=== PATIENT | female | born 1995 | race Caucasian/White ===

== ENCOUNTER 2018-08-16 18:02 | Emergency (ER) | payer MEDICAID ==
[~2018-08-16] VITALS: Ht 160 cm; Wt 45.0 kg
[2018-08-16 18:07] VITALS: Ht 160 cm; Wt 45.0 kg
--- NOTE | 2018-08-16 20:19 | ERD ---
ER Documentation Chief Complaint Chief Complaint vaginal bleeding & pelvic pain LMP 07/09/18, +hm preg test HPI 22-year old 6-weeks female presents with complaint of pelvic pain and vaginal bleeding since this morning. LMP 07-03-18. patient denies clots, admits to spotting and has only used 1 pad since this morning. States to have taken her first home test yesterday which resulted in positive. Admits to nausea in the morning with one episode of vomiting today. Denies fevers, chills, back pain, dysuria. ROS All systems reviewed and are negative except as per history of present illness. CONSTITUTIONAL: Denies fever, Denies chills, Denies general weakness. RESPIRATORY: Denies SOB, Denies cough. CARDIOVASCULAR: Denies chest pain, Denies palpitations GI: Admits to nausea, Admits to vomiting. Denies diarrhea. Admits to pelvic pain. : Denies dysuria, Denies urgency, Denies hematuria NEURO: Denies focal weakness, Denies slurred speech, Denies gait problems PSYCHIATRIC: Denies change mental status, Denies confusion Allergies Allergies: Coded Allergies: No Known Allergy (Unverified , 08/16/18) Physical Exam Vitals Vital Signs Date Temp Pulse Resp B/P (MAP) Pulse Ox O2 O2 Flow FiO2 Time Delivery Rate 08/16/18 98.7 64 18 103/55 100 22:44 (71) 08/16/18 97.7 89 18 121/64 100 18:07 (83) Physical Exam Const: No acute distress Head: Atraumatic Eyes: Normal Conjunctiva ENT: Normal External Ears, Nose and Mouth. Neck: Full range of motion. No meningismus. Resp: Clear to auscultation bilaterally. Cardio: Regular rate and rhythm, no murmurs Abd: Soft, non tender, non distended. Normal bowel sounds. No suprapubic tenderness, no RLQ/LLQ tenderness. No rebound, no guarding, no McBurney point tenderness. No CVA tenderness. : Normal external genitalia. No visible rashes or discharge. Pelvic exam revealed blood in the vaginal canal, cervical os visible and closed with no POCs. Pelvic exam performed with Bushra Way RN as piece work checker. Back: No midline or flank tenderness Neur: Awake and alert Psych: Normal Mood and Affect Result Diagram: 08/16/18202408/16/182024 Results 24 hrs Laboratory Tests Test 08/16/18 20:25 08/16/18 20:32 White Blood Count 8.2 10^3/ul Red Blood Count 4.17 10^6/ul Hemoglobin 12.6 g/dl Hematocrit 37.2 % Mean Corpuscular Volume 89.2 fl Mean Corpuscular Hemoglobin 30.2 pg Mean Corpuscular Hemoglobin Concent 33.9 g/dl Red Cell Distribution Width 11.8 % Platelet Count 271 10^3/UL Mean Platelet Volume 9.6 fl Immature Granulocytes % 0.200 % Neutrophils % 55.2 % Lymphocytes % 37.0 % Monocytes % 6.2 % Eosinophils % 1.0 % Basophils % 0.4 % Nucleated Red Blood Cells % 0.0 /100WBC Immature Granulocytes # 0.020 10^3/ul Neutrophils # 4.5 10^3/ul Lymphocytes # 3.0 10^3/ul Monocytes # 0.5 10^3/ul Eosinophils # 0.1 10^3/ul Basophils # 0.0 10^3/ul Nucleated Red Blood Cells # 0.0 10^3/ul Prothrombin Time 12.6 Sec Prothrombin Time Ratio 1.0 INR International Normalized Ratio 0.93 Activated Partial Thromboplast Time 27.0 Sec Urine Color YELLOW Urine Clarity SLIGHTLY CLOUDY Urine pH 6.0 Urine Specific [place] 1.028 Urine Ketones TRACE mg/dL Urine Nitrite NEGATIVE mg/dL Urine Bilirubin NEGATIVE mg/dL Urine Urobilinogen NEGATIVE mg/dL Urine Leukocyte Esterase NEGATIVE Gay/ul Urine Microscopic RBC 145 /HPF Urine Microscopic WBC 1 /HPF Urine Squamous Epithelial Cells FEW /HPF Urine Mucus MODERATE /HPF Urine Hemoglobin 3+ mg/dL Urine Glucose NEGATIVE mg/dL Urine Total Protein NEGATIVE mg/dl Sodium Level 138 mmol/L Potassium Level 3.6 mmol/L Chloride Level 100 mmol/L Carbon Dioxide Level 26 mmol/L Anion Gap 12 Blood Urea Nitrogen 11 mg/dl Creatinine 0.47 mg/dl Est Glomerular Filtrat Rate mL/min > 60 mL/min Glucose Level 89 mg/dl Calcium Level 9.1 mg/dl Total Bilirubin 0.7 mg/dl Direct Bilirubin 0.00 mg/dl Indirect Bilirubin 0.7 mg/dl Aspartate Amino Transf (AST/SGOT) 25 IU/L Alanine Aminotransferase (ALT/SGPT) 16 IU/L Alkaline Phosphatase 65 IU/L Total Protein 8.2 g/dl Albumin 4.6 g/dl Globulin 3.60 g/dl Albumin/Globulin Ratio 1.27 Beta HCG, Quantitative 78771.0 mIU/ml POC Beta HCG, Qualitative POSITIVE Procedures/MDM PROCEDURE: US OB. FINDINGS: The uterus is anteverted. It measures 7.8 x 4.7 x 6.4 cm. Uterus is of normal contour and echogenicity. Noted is a single intrauterine gestation sac. Mean sac diameter measures or 5 cm in diameter. There is a pole with a heart beat measuring 120 beats per minute. Deputy-rump length measures 5 millimeters corresponding to a gestational age of 6 weeks 1 days by ultrasound criteria. There is a large 5.4 x 2.9 x 3.9 cm subchorionic hemorrhage. The right ovary measures 3.5 x 3.2 x 3.1 by centimeter. The left ovary measures 2.4 x 1.4 x 2.0 centimeter. No adnexal masses seen. There is normal arterial flow to both ovaries on color-flow Doppler imaging. There is no free fluid in the pelvis. No solid pelvic mass is present. IMPRESSION: Single intrauterine gestation of approximate gestational age 6 weeks 1 days by ultrasound criteria with positive heart beat. Large subchorionic hemorrhage. MDM: Patient was seen and examined, triage note and the nursing notes were reviewed. All imaging studies and laboratory analysis were reviewed by me (when ordered). Patient is well-appearing, in no distress, non-toxic, presenting with complaint of vaginal bleeding / spotting, pelvic pain and reports being . In ED patient is hemodynamically stable. Ultrasound obtained and did not reveal co ncerning findings for ectopic, but did reveal finding positive for subchorionic hemorrhage. Laboratory studies were reviewed, stable, Rh A pos. Patient will need to have close follow-up with OB and explained possible high risk to patient. Advised to refrain from physical activity including sexual intercourse until examined by LOADING AND UNLOADING SUPERVISOR, and advised to f/u within the next 1-2 days. As pt does not have insurance pt was referred to both community health clinics and [facility] clinics in the area. Threatened miscarriage precautions were given to the pt. Patient remains in no distress, well-appearing, asymptomatic and will be discharged. Case and ultrasound was review with Dr. Young who also agreed with strict LOADING AND UNLOADING SUPERVISOR follow-up. Pt expressed verbal understanding and agreement to treatment plan. All questions addressed and answered. Departure Diagnosis: Primary Impression: Subchorionic hemorrhage Fetus number: single or unspecified fetus Trimester: first trimester Qualified Codes: O41.8X10 - Other specified disorders of amniotic fluid and membranes, first trimester, not applicable or unspecified; O46.8X1 - Other antepartum hemorrhage, first trimester Additional Impressions: Vaginal bleeding in patient at less than 20 weeks gestation Pelvic pain Condition: Stable LURDES WOOD PA-C Aug 16, 2018 20:19
[2018-08-16 22:44] VITALS: BP 103/55; PULSE 64; RESP 18
== END 2018-08-16 22:45 | disposition home or self-care (01) ==
LOC: FTE 18:02
DX: O41.8X10 Other specified disorders of amniotic fluid and membranes, first trimester, not applicable or unspecified (principal); O46.8X1 Other antepartum hemorrhage, first trimester; O26.891 Other specified pregnancy related conditions, first trimester; R10.2 Pelvic and perineal pain; Z3A.01 Less than 8 weeks gestation of pregnancy
CPT/HCPCS: 36415; 76801; 76817; 80053; 81001; 81025; 84702; 85025; 85610; 85730; 86900; 86901; Z7502